=== PATIENT | female | born 2000 | race Caucasian/White ===

== ENCOUNTER 2019-08-25 20:13 | Emergency (ER) | payer BC ==
--- OUTSIDE RECORDS SUMMARY | 2019-08-25 20:28 | XMS REPORT | Continuity of Care Document ---
:2000 Author Organization 0001 - [facility] Address [address] [place] [address] Phone Care Team Providers Name Role Phone PARTHA STEVEN MD Unavailable Unavailable Allergies, Adverse Reactions, Alerts Substance Reaction Status azithromycin Rash Active Medications Medication Instructions Dosage Effective Dates Status Comments (start - stop) hydroxyzine HCl 25 Take one to two - Active mg tablet tablets up to two times a day as needed for severe anxiety. Protonix 20 mg take 1 tablet by 20 MG - Active Please call tablet,delayed oral route every Marlena when release day ready. Thankyou. Stool Softener 100 take 1 capsule by 100 MG - Active over the mg capsule oral route every counter day at bedtime as needed melatonin 5 mg 1 tablet at night - Active OVER the tablet counter multivitamin tablet take 1 tablet by - Active Over the oral route every counter, day with food Vitamin D 800-1000 mcg REAGAN (28) 3 mg-0.02 take 1 tablet by 1.00 tablet - Active mg tablet oral route every day Problems Condition Effective Dates (start - stop) Clinical Status Encntr for general adult medical exam w/o abnormal findings Anxiety Dissociative episodes Generalized abdominal pain Family history of thyroid disease Sprain of unspecified ligament of left - ankle, init encntr Oth slipping, tripping and stumbling - w/o falling, init Unspecified place or not applicable - Activity, running - Unspecified external cause status - Insect bite, initial encounter Insect bite (nonvenomous), left lower - leg, initial encounter Insect bite (nonvenomous), right lower - leg, init encntr Encounter for screening for - respiratory tuberculosis Encntr for general adult medical exam w/o abnormal findings Encounter for screening for other - disorder BMI pediatric, 5th percentile to less - than 85% for age Procedure and treatment not carried - out, unspecified reason Other depression Acne vulgaris Encntr for routine child health exam w/o abnormal findings Encounter for screening for other - disorder BMI pediatric, 5th percentile to less - than 85% for age Encounter for immunization - Acne vulgaris Encntr for routine child health exam w/o abnormal findings Encounter for immunization - BMI pediatric, 5th percentile to less - than 85% for age Encounter for immunization - Pharyngitis, acute Check, routine, /child Screening for viral disease NEC - Fever presenting with conditions classified elsewh Influenza due to identified A. influenza virus Urinary frequency Acute UTI VACCN/INOC VIRAL DIS NEC - Tendinitis, achilles - Fever Viral Infection, Unspecified Viral Infection, Unspecified - Check, routine, infant/child - Sprain/strain, ankle NOS Sprain/strain, ankle NOS - Influenza Vaccine - Check, routine, infant/child - Influenza Vaccine - Otitis media NOS Otitis media NOS Otitis media NOS Otitis media NOS - Otitis media NOS - Upper Respiratory Infection, Acute Check, routine, /child - Infection, viral NOS Acute Conjunctivitis, acute NOS Acute Pharyngitis, acute Acute Stridor Acute Fever Acute Infection, viral NOS Acute Pharyngitis, acute Acute Infection, viral NOS Acute Infection, viral NOS Acute Check, routine, infant/child Routine Check, routine, /child Routine Check, routine, /child Routine Check, routine, /child Routine Procedures Procedure Date Procedure Unknown Results Test Name Date and Time Measure Units Reference Range Abnormal Flag Status Comments Unknown Encounters Encounter Practice Location Reason(s) Diagnoses Date Provider Providers Description For Visit Copied on Encounter 4416 [facility] Encntr for [facility], Pediatrics general adult 8 PARTHA. 3357 [place] medical exam w/o [address], findings Juancho Romero [place], [place], [place] [address], [place], [address]. tel: tel:[phone] - [facility], Pediatrics PARTHA. [address] [place] [address], Juancho Romero [facility], [place], [place], [place], [facility], [place], [address]. tel: tel:[phone] - [facility] AnxietyDissociat [facility], Pediatrics wolfgang 6 PARTHA. 3357 [place] episodesGenerali Bryan zed abdominal [address], painFamily Heather Juancho history of [place], thyroid disease [place] [address], [place], [address]. tel: tel:[phone] - [facility] Sprain of [facility] Sonic[facility], Center unspecified 0 LONG. Provider: Jeramie ligament of left 4416 [place] LONG Adams ankle, init [facility], [place], operated by [facility], Street, encntrOth East, 4417 [place] slipping, [place], [place], [place], tripping and [address] stumbling w/o tel:+ East, tel:+60 falling, [phone] [place], [phone] [place], [address] or not tel:+60 applicableActivi [id number] ty, runningUnspecifi ed external cause status 0001 - [facility] Insect bite, VALERIA [employer], Center initial 2-201 ELICIA. 4417 [place] encounterInsect [address] [place] Bryan bite [address], (nonvenomous), Juancho Roberts left lower leg, [place], [place], [place], initial [address]. [address], [place] encounterInsect tel: tel:+ [phone] (nonvenomous), right lower leg, init encntr 0001 - [facility] Encounter for Apr-0 DEGUARDI [employer], Pediatrics screening for 4201 JACQUES. [place] respiratory 8 Caesar Adams tuberculosis Eliu Romero, [facility] [place], [place], [place], [address]. [address], [place] tel: tel: [phone] 0001 - S Dec-2 GUIZANO [employer], Pediatrics 8-201 PARTHA. [place] Bryan Nowak, Juancho Romero [facility], [place], [place], [place], [facility], [place], [address]. tel: tel: [phone] - S Encntr for Dec-2 GUIZANO [employer], Pediatrics general adult 1-201 PARTHA. [place] medical exam w/o Bryan abnormal [facility], findingsEncounte Ju[place]o Romero r for screening [place], for other [place] [address], [place], [address]. tel: pediatric, 5th tel:[phone] percentile to [phone] less than 85% for age 0001 - S Procedure and Apr-1 GUIZANO [employer], Pediatrics treatment not 0-201 PARTHA. Marie carried out, Bryan unspecified Caesar Eliu, reason Juancho Romero [facility], [place], [place], [address], [place], [address]. tel: tel:[phone] - [facility] Other depression Apr-1 GUIZANO [employer], Pediatrics 0-201 PARTHA. 3357 [place] 7 Bryan [facility], Juancho Romero [place], [place], [address], [facility], [address]. tel:60 tel:[phone] - [facility] Acne vulgaris Dec-2 [facility], Dermatology 1-201 LESA. 200 33-57 6 [facility], [address], [place], [place], [place], [address]. [address], [place] tel:+6076 tel:+ [phone] 0001 - [facility] Encntr for Dec-0 [employer], Pediatrics routine child 5-201 PARTHA. 33-57 [place] health exam w/o Bryan abnormal Caesar [place], Juancho Diaz for screening [place], for other [place], [address], [place], [address]. tel: pediatric, 5th tel:[phone] percentile to 264491 less than 85% for age 0001 - [facility] Encounter for Nov-0 DEGUARDI [employer], Pediatrics immunization 9-201 JACQUES. -57 [place] 6 [facility], [place], [place], [address]. [address], [place] tel:+[phone] tel:[phone] 0001 - [facility] Acne vulgaris Sep-2 [employer], Dermatology 6-201 LESA. 200 33-57 6 [facility], [address], [place], [place], [place], [address]. [address], [place] tel:+[phone] tel: [phone] 0001 - [facility] Encntr for Nov-1 GUIZANO [employer], Pediatrics routine child 9-201 PARTHA. 33-57 [place] health exam w/o 5 - Bryan Maynard [place] r for [place], immunizationBMI [place], [address], [place] pediatric, [place], [address]. tel:+60 percentile to tel:[phone] less than 85% [id number] for age [facility] Encounter for A Fourth Act [facility], Pediatrics immunization 6-201 PARTHA. 33-57 [place] 5 [facility], Juancho Romero [facility], [place], [place], [address], [place], [address]. tel:+60 tel:[phone] - [facility] Pharyngitis, MANISH HANNA. [employer], Center acute 0- 4417 Jeramie 33-[address] [facility], [place], [place], [place] [address]. [place], [place], tel:[phone], [place] 797[address] tel:[phone] [place] [address] Check, routine, [facility], Pediatrics /childScre 0-201 PARTHA. 33-57 [place] ening for viral Bryan disease [facility], Juancho Romero [facility], [place], [place], [address], [place], [address]. tel:+60 tel:[phone] - [facility] Fever presenting [facility], Pediatrics with conditions 2-201 PARTHA. 3357 [place] classified Bryan elsewhInfluenza [facility], due to Juancho Romero identified A. [facility], [place], [place], influenza virus [place], [address], [place], [address]. tel:60 tel:[phone] - [facility] Walk-In Urinary Apr- AWAN JOSH. ICONIC, Center frequencyAcute 0-201 4433 [place] 33-[address] [facility], Rheumatolog Juancho , [place], [place], [place], [address]. [address], [place] tel:+[phone] tel:[phone] 0001 - [facility] Oct-2 SAIDA S Inc, Pediatrics 7-201 ASWINI. 33-57 [place] 4 [facility], [place], [place], [place], [address], [place], [address]. tel: tel:+ [phone] - S Apr-0 BPEDS S Inc, Pediatrics 9-201 NURSE. . [place] 4 [facility], [place], [address], [place] tel:[phone] - [facility] Dec-0 [employer] S Inc, Pediatrics 4-201 NURSE. . [place] 3 [place], [address], [place] tel:+ [phone] 0001 - [facility] VACCN/INOC VIRAL Oct-0 [facility] Inc, Pediatrics DIS NECCheck, 7-201 PARTHA. 33 [place] routine, 3 [place] /child [facility], [facility], [place], [place], [address], [place], [address]. tel: tel: [phone] - [facility] Walk-In Tendinitis, Sep- JERAMIE Referring S Inc, Center achilles 4201 WALKIN. Provider: 33-57 Jeramie 3 4401 Jer[place] WALKIN Bryan Pkisela E, JERAMIE, Street, [place], [place], 4401 [place] [address]. [place], [place], [address]kw[address], [address], [place], tel:+ [place], [phone]. [phone] - [facility] FeverViral Mar- GUIZANO Referring [employer] Inc, Pediatrics Infection, 8201 PARTHA. Provider: 33-57 Marie UnspecifiedViral 3 PARTHA Bryan Infection, Caesar STEVEN , Street, Unspecified Ave, [facility], [place], [place], [place] [address], [place], [address]. SPED, tel: tel:[phone] [place] [phone] [address]356 , [place], [address]. tel:[phone] [place] [address] Check, routine, Mar-0 [facility], Pediatrics /childChec 4-201 PARTHA. 33 [place] k, routine, 2 Bryan /child Caesar [place], e, [facility], [place], [place], [address], [facility], [address]. tel: tel:+ [phone] - [facility] Sprain/strain, Sep- [facility] Referring S Inc, Pediatrics ankle 3-201 PARTHA. Provider: 33-57 [place] NOSSprain/strain 2 PARTHA Bryan , ankle NOS [facility], [place], Av, [facility], [place], [place], [place] [address], [place], [address]. SP, tel:+ tel: [place] [phone] [address] , [place], [address]. tel:[phone] [place] [address] Influenza Sep- PICHETTE [facility] Inc, Pediatrics VaccineCheck, 9-201 SANTO. [place] routine, 1 [place] 9 [place] /childChec [facility], routine, [facility] [place] /[place], [address]. [place], [place], uenza Vaccine tel: [phone], [place] 374772 tel: [phone] [address] [place] [address] Walk-In Otitis media Refugio- CONSOLAZIO Referring [facility], Center NOSOtitis media 8-201 KAYLA. Provider: 33-57 Jer[place]ie NOSOtitis media 1 4417 [place] WALKIN [place] NOSOtitis media [facility], [place], NOSOtitis media East, [address] [place] NOS [place], [place], [place], [address]. [address]kw[address] , [address], [place] tel:+60 [place], tel:[phone] [place], [address]. [phone] [facility] Upper Dec- GUIZANO Referring S Inc, Pediatrics Respiratory 6-201 PARTHA. Provider: 33- [place] Infection, Acute 0 PARTHA Bryan Watters, Eliu, Ave, [facility], [place], [place], [facility] [address], [place], [address]. [facility]SPED, tel:+60 tel:[phone] [place] [phone] 834003 , [place], [address]. tel:[phone] 0001 - [facility] Mar-2 BP[employer] S Inc, Pediatrics 9-201 NURSE. . [place] 0 [facility], [place], [address], [place] tel:[phone] [phone] - [facility] Check, routine, [facility] Inc, Pediatrics /child 2-201 KATHRINE. 257 [place] 0 [facility] & [place], [place], [place], [place], [address], [place], [address]. tel:+60 tel:[phone] - S Mar- PENDELL S Inc, Pediatrics 6-200 POLLY. JENNIFER - [place] 9 262 Elisa Bryan Ale, [place], [facility], [address]. [place], [place], tel:+[phone] [address], [place] 190505 tel:[phone] - [facility] Infection, viral Refugio- MELISSA [facility] Inc, Pediatrics NOS 4-200 ROMI. Provider: [place] 9 ROMI TORRES, Eliu, Ave, [facility], [place], [place], [place], [place] [address], [place], [address]. UHSPED, tel:+60 tel:+[phone] [place] [phone] 827271 , [place], [address]. tel:[phone] 0001 - S Jun- [facility] Inc, Pediatrics 9-200 PARTHA. [place] 9 Bryan Caesar [place], e, [facility], [place], [place], [address], [facility], [address]. tel: tel:[phone] - S Conjunctivitis, Nov-1 S Inc, Pediatrics acute [place] NOSPharyngitis, 8 [facility], [place], [address], [place] tel:[phone] 0001 - S Nov-0 PENDELL S Inc, Pediatrics 3-200 POLLY. [facility] - [place] 8 262 [facility], [facility], [address]. [place], [place], tel:[phone], [place] 456273 tel:60 [phone] 0001 - S Larry-0 GUIZANO S Inc, Pediatrics 8-200 PARTHA. [place] 8 [place], [place], [place] [address], [facility], [address]. tel: tel:[phone] - S Fever Apr-1 PENDELL [facility] [employer], Pediatrics 4-200 POLLY. [facility] Provider: [place] 8 262 [facility], [facility], [address], [address]. [place], [place], tel:+[phone] [place] [address], [address] [place] tel: [place], [place], [id number]. tel:[phone] 0001 - S Nov-2 GUIZANO [employer], Pediatrics 9-200 PARTHA. [place] 7 42 [place], [place], [place] [address], [facility], [address]. tel:60 tel:[phone] - S Infection, viral Apr-1 S Inc, Pediatrics NOS [place] 7 [place], [address], [place] tel:+ [phone] [address] [place] [address] Pharyngitis, GUIZANO [facility] [employer] Inc, Pediatrics acuteInfection, 3-200 PARTHA. Provider: 33-57 [place] viral 7 PARTHA Bryan NOSInfection, Caesar [facility], Street, viral NOS Ave, [facility], [place], [place], [facility] [address], [place], [address]. [facility], tel: tel:+[phone] [place] [phone] [address] , [place], [address]. tel:[phone] [place] [address] Nov-0 iWarda [employer] Inc, Pediatrics 6-200 PARTHA. 3357 [place] 6 Bryan Caesar [place], Ave, [place], [place], [place], [address], [place], [address]. tel: tel:[phone] - [facility] Check, routine, Nov- A [employer] Inc, Pediatrics /child 2-200 PARTHA. 33-57 [place] 6 [facility], e, [place], [place], [place], [address], [place], [address]. tel: tel:[phone] Family History Family Member Diagnosis Age At Onset Paternal grandfather Hypertension Immunizations Vaccine Date Status Comments Influenza, injectable, not administered Note: States received at quadrivalent, preservative [facility] pharmacy in free, split virus 04/2018. ; Source: New Immunization Record Influenza, injectable, administered Source: Other Registry quadrivalent, preservative free, split virus 9530-0713 Influenza, injectable, administered Source: New Immunization quadrivalent, preservative Record free, split virus 3 years or older 8745-6797 Meningococcal MCV4O administered Source: New Immunization Record Influenza virus vaccine, administered Source: New Immunization injectable, quadrivalent, Record split virus, preservative free, 3 years or older Fluarix Quad 4128-2765 Fluarix Quadrivalent Syringe administered Source: Source Unspecified HPV (quadrivalent) administered Source: Source Unspecified HPV (quadrivalent) administered Source: New Immunization Record HPV (quadrivalent) administered Source: New Immunization Record Fluarix Quadrivalent Syringe administered Source: New Immunization Record Fluarix Syringe administered Source: New Immunization Record Fluarix Syringe administered Source: New Immunization Record Fluzone PF (VFC) 36months and administered Source: New Immunization older Record Tdap administered Source: New Immunization Record MCV4 (11-55 yrs) administered Source: New Immunization Record flu (36mo - 18yr) injection - administered Source: New Immunization single dose (Fluzone) Record Hep A (2 dose) 0.5 mL IM administered Source: New Immunization Record varicella administered Source: New Immunization Record flu (split) (3 yrs or older) administered Note: parent denies egg 0.5 mL IM with preservatives allergy ; Source: New Immunization Record Hep A (ped/adol, 2 dose) administered Source: New Immunization Record flu (split) (3 yrs or older) administered Source: New Immunization 0.5 mL IM with preservatives Record flu (split) (3 yrs or older) administered Note: Abstracted -05/05/2006 ; Source: New Immunization Record MMR administered Note: Abstracted -05/01/2006 ; Source: New Immunization Record polio, inactivated (IPV) administered Note: Abstracted -05/01/2006 ; Source: New Immunization Record DTaP administered Note: Abstracted -05/01/2006 ; Source: New Immunization Record pneumo (under 5) (PCV) administered Note: Abstracted -05/01/2006 ; Source: New Immunization Record polio, inactivated (IPV) administered Note: Abstracted -05/01/2006 ; Source: New Immunization Record HIB administered Note: Abstracted -05/01/2006 ; Source: New Immunization Record DTaP administered Note: Abstracted -05/01/2006 ; Source: New Immunization Record varicella administered Note: Abstracted -05/01/2006 ; Source: New Immunization Record MMR administered Note: Abstracted -05/01/2006 ; Source: New Immunization Record hep B (ped/adol, 3 dose) administered Note: Abstracted -05/01/2006 ; Source: New Immunization Record HIB administered Note: Abstracted -05/01/2006 ; Source: New Immunization Record DTaP administered Note: Abstracted -05/01/2006 ; Source: New Immunization Record polio, inactivated (IPV) administered Note: Abstracted -05/01/2006 ; Source: New Immunization Record HIB administered Note: Abstracted -05/01/2006 ; Source: New Immunization Record DTaP administered Note: Abstracted -05/01/2006 ; Source: New Immunization Record polio, inactivated (IPV) administered Note: Abstracted -05/01/2006 ; Source: New Immunization Record HIB administered Note: Abstracted -05/01/2006 ; Source: New Immunization Record DTaP administered Note: Abstracted -05/01/2006 ; Source: New Immunization Record hep B (ped/adol, 3 dose) administered Note: Abstracted -05/01/2006 ; Source: New Immunization Record hep B (ped/adol, 3 dose) administered Note: Abstracted -05/01/2006 ; Source: New Immunization Record Influenza, injectable, pending Source: New Immunization quadrivalent, preservative Record free, split virus Payers Payer name Insurance type Covered libertarian ID Authorization(s) [employer] He [id number] [facility] [id number] [facility] [id number] [facility] [id number] [facility] [id number] [facility] [id number] [facility] [id number] Social History Type Description Quantity Date Captured Comments Alcohol Use Details Unknown Caffeine Use Details Unknown Tobacco Use Status Unknown Smoking Status Unknown Vital Signs Date / Height Weight BMI Pulse Blood Temperature Respiratory Body Head BMI Time: Rate Pressure Rate Surface Circumference percentile Area Unknown Chief Complaint And Reason For Visit No information Reason For Referral Reason For Referral Unknown Plan Of Care Date Type Action Status Unknown Immunization Influenza, injectable, quadrivalent, preservative free, ordered split virus Date Type Problem Goal Intervention Status Start Date Goal Annual Wellness Schedule Annual Visit needed Wellness Visit History Of Present Illness Encounter Date Complaint History Of Present Illness No information Functional Status Encounter Date Functional Assessment Cognitive Assessment Unknown Medications Administered Medication Instructions Dosage Effective Dates (start - stop) Status Comments Drug Treatment Unknown Instructions Date Instruction Additional Information Encourage healthy dietary choices, Related to Encntr for general adult daily physical activities >45 medical exam w/o abnormal findings mintues/day, adequate hydration and sleep. Dental visits every 6 months. Received flu vaccine in college. REquest date to be sent in to add to vaccine record. Age appropriate anticipatory guidance discussed (15-21 years) Age appropriate diet discussed (15-21 years) Age appropriate safety discussed (15-21 years) Oral Health Discussed (15-21 years) Discussed at length. Behavioral Related to Dissociative episodes therapy and meds discussed. multiple insect bites to legs, will Related to Insect bite, initial prescribe prednisone Thank you for encounter choosing the [facility] Walk In. We hope that you will be feeling better soon.Any condition can change and some diseases may worsen despite proper treatment. Other problems may begin with vague or unusual symptoms and only over time will the problem become more clear, making it possible to arrive at the correct diagnosis. Your visit today is not a substitute for, or an effort to provide complete medical care. In most cases, you should let your primary care doctor check you again. Tell your doctor about any new or lasting problems. If you do not have a primary care provider, you have been given a list today of local providers who are accepting new patients. All x-rays are interpreted by a radiologist, usually within 48 hours. If there is any important difference between the radiologist's interpretation and what you were told today by the provider, you will be notified. If you had cultures done today, results will be available in 72 hours, depending on specimen. Encourage healthy dietary choices, Related to Encntr for general adult daily physical activities, adequate medical exam w/o abnormal findings hydration and sleep. Received flu vaccine at pharmacy for this winter season. Bloodwork to be done. Refer to Related to Other depression Psychiatry, appt to be made. Depression, anxiety, bipolar disorder.Consider Dr. Holley Hernandez, [facility] Psych. Encourage healthy diet, daily physical activities, adequate hydration and sleep. Wash face in the morning with benzoyl Related to Acne vulgaris peroxide wash. If your skin is dry, use a lower dose like 2.5% or 5%.Wash face in the evening with Cetaphil or Cerave.After washing your face, apply tretinoin 0.05% cream to the face every night.Recheck in 1 year. Please call sooner if needed. Encourage healthy diet, continue daily Related to Encntr for routine child physical activites, growth chart health exam w/o abnormal findings reviewed. Vaccines up to date. Wash face in the morning with benzoyl Related to Acne vulgaris peroxide wash. If your skin is dry, use a lower dose like 2.5% or 5%.Wash face in the evening with Cetaphil or Cerave.After washing your face, apply treitnoin 0.05% cream to the face. You can start using every other night or every third night and increase slowly as tolerated.Recheck in 3 months. Please call sooner if needed. ACNE: Avoid scrubbing - remove oil, dirt, and makeup without irritating the skin. Apply topical medications to clean skin a few minutes after washing. Moisturizers, sunscreens, or makeup may be applied after medications to correct excessive dryness, prevent sunburn, and conceal redness. If you have large open blackheads or white pustules you can push them out gently with a comedone extractor (sold at pharmacies), but otherwise do not pinch or pink pimples. Eat a balanced diet and avoid high glycemic carbs, hydrogenated and saturated fats, and milk intake over 1glass per day (incl.skim). Yogurt and cottage cheese - OK. Get plenty of sleep and exercise - what is good for your health overall is also good for your skin. It usually takes 2-3 months of steady treatment to get over 50% improvement, and continued regular use to have the best results. Acne cannot be cured, but can be controlled in most cases. ACNE, RETINOIDS: Tretinoin. Wash the face and apply to a dry skin surface. Use about a split- pea-sized drop for each cheek, the forehead, and chin. Rub in well. Avoid getting close to the eyes and lips. Tretinoin must be used at bedtime and cannot be applied at the same time as benzoyl peroxide. Retinoids cause exfoliation, so drying, flaking, and easier sunburning are expected. Light moisturizers such as CeraVe Lotion, Cetaphil, or Aveeno can be used. Use of a 30 or greater SPF sunscreen is recommended prior to sun exposure. Neutrogena Ultra-Sheer 55 and Aveeno 55 are good facial sunscreens. Acne improvement and control takes 2-3 months to begin take effect, and control of acne requires continued daily use. Risks and benefits of new medication discussed. Patient verbalized understanding Encourage healthy diet, daily physical Related to Encntr for routine child activities. Flu vaccine received health exam w/o abnormal findings earlier. Menactra booster given. The office will call with results of Related to Pharyngitis, acute culture.May use warm salt water gargles, tea with honey, and over the counter throat lozenges and throat sprays for relief of sore throat. - Thank you for choosing the [facility]. We hope that you will be feeling better soon.Any condition can change and some diseases may worsen despite proper treatment. Other problems may begin with vague or unusual symptoms and only over time will the problem become more clear, making it possible to arrive at the correct diagnosis. Your visit today is not a substitute for, or an effort to provide complete medical care. In most cases, you should let your primary care doctor check you again. Tell your doctor about any new or lasting problems. If you do not have a primary care provider, you have been given a list today of local providers who are accepting new patients. All x-rays are interpreted by a radiologist, usually within 48 hours. If there is any important difference between the radiologist's interpretation and what you were told today by the provider, you will be notified. If you had cultures done today, the results will be available in 72 hours, depending on the specimen.- Growth chart printed, reviewed, copy Related to Check, routine, given. Vaccines up to date. /child Discussed positive result with dad. Related to Influenza due to Supportive measures, fever control, identified A. influenza virus rest, good hydration. Will send your urine for culture, call Related to Acute UTI the office in 2-3 days for results.Drink plenty of water. Do not delay urinating when you feel the need to urinate. Wipe from front to back to keep rectal bacteria from getting into the vagina and urethra. Avoid using irritating cosmetics or chemicals in the area of the vagina and urethra (such as strong soaps, or sprays). Keep your genital area clean. Empty your bladder completely when you urinate. Wear all-cotton or cotton-crotch underwear. Change underwear every day. If new or worsening symptoms such as high fever or vomiting occur then go to the ER for evaluation, otherwise followup with your primary doctor within 5 days for recheck. Thank you for choosing the [facility]. We hope that you will be feeling better soon.Any condition can change and some diseases may worsen despite proper treatment. Other problems may begin with vague or unusual symptoms and only over time will the problem become more clear, making it possible to arrive at the correct diagnosis. Your visit today is not a substitute for, or an effort to provide complete medical care. In most cases, you should let your primary care doctor check you again. Tell your doctor about any new or lasting problems. If you do not have a primary care provider, you have been given a list today of local providers who are accepting new patients. All x-rays are interpreted by a radiologist, usually within 48 hours. If there is any important difference between the radiologist's interpretation and what you were told today by the provider, you will be notified. If you had cultures done today, the results will be available in 72 hours, depending on the specimen.
--- NOTE | 2019-08-25 21:05 | ED ---
HPI Chest Pain - HPI Summary HPI Summary: This patient is a 19 year old F presenting to ED with a chief complaint of mid- sternal chest pain since 1.5 days ago. Patient has an eating disorder and she was sent here by her diesel powerplant mechanic as her weight has been low recently. Patient reports her chest pain started 1.5 days ago and she describes it as a tightness. Patient was just relaxing when the pain started. She is not allowed to exercise. Patient reports that since the pain started, the pain has been constant. Patient also reports mild shortness of breath. Patient denies fever, coughing, nausea, diaphoresis, pain or swelling in the legs. Patients grandfather had an AK when he was 52. The patient rates the pain 6/10 in severity. Symptoms aggravated by nothing. Symptoms alleviated by nothing. Patient takes Zoloft daily and she is taking prophylactic Tamiflu. Medications reviewed. Allergies noted. - History of Current Complaint Chief Complaint: EDChestPainROMI Time Seen by Provider: 08/25/19 20:57 Hx Obtained From: Patient Onset/Duration: Started Days Ago - 1.5 days ago, Still Present Timing: Constant, Lasting Days - Since 1.5 days ago Initial Severity: Moderate Current Severity: Moderate Pain Intensity: 6 Pain Scale Used: 0-10 Numeric Chest Pain Location: Mid Sternal Character: Tightness Aggravating Factor(s): Nothing Alleviating Factor(s): Nothing Associated Signs and Symptoms: Positive: Chest Pain, Shortness of Breath. Negative: Fever, Diaphoresis, Nausea, Cough, Calf Pain/Swelling PMH/Surg Hx/FS Hx/Imm Hx Endocrine/Hematology History: Denies: Hx Diabetes Cardiovascular History: Denies: Hx Hypercholesterolemia, Hx Hypertension Psychiatric History: Reports: Hx Eating Disorder - Surgical History Surgery Procedure, Year, and Place: Denies Infectious Disease History: No Infectious Disease History: Denies: Traveled Outside the [place] in Last 30 Days - Family History Known Family History: Positive: Cardiac Disease - AK in grandfather when he was 52 - Social History Alcohol Use: Rare Hx Substance Use: No Substance Use Type: Reports: None Hx Tobacco Use: No Smoking Status (MU): Never Smoked Tobacco Review of Systems Negative: Fever, Skin Diaphoresis Positive: Chest Pain Positive: Shortness Of Breath. Negative: Cough Negative: Nausea Musculoskeletal: Negative - Pain or swelling in legs All Other Systems Reviewed And Are Negative: Yes Physical Exam - Summary Physical Exam Summary: Constitutional: Well-developed, Well-nourished, Alert. (-) Distressed Skin: Warm, Dry HENT: Normocephalic; Atraumatic Eyes: Conjunctiva normal Neck: Musculoskeletal ROM normal neck. (-) JVD, (-) Stridor, (-) Tracheal deviation Cardio: Rhythm regular, rate normal, Heart sounds normal; Intact distal pulses; Radial pulses are 2+ and symmetric. (-) Murmur Pulmonary/Chest wall: Effort normal. (-) Respiratory distress, (-) Wheezes, (-) Rales Abd: Soft, (-) tenderness, (-) Distension, (-) Guarding, (-) Rebound Musculoskeletal: (-) Edema Lymph: (-) Cervical adenopathy Neuro: Alert, Oriented x3 Psych: Mood and affect Normal Triage Information Reviewed: Yes Vital Signs On Initial Exam: Initial Vitals Temp Pulse Resp BP Pulse Ox 98.2 F 83 16 125/74 97 08/25/19 20:19 08/25/19 20:19 08/25/19 20:19 08/25/19 20:19 08/25/19 20:19 Vital Signs Reviewed: Yes Procedures - Sedation Patient Received Moderate/Deep Sedation with Procedure: No Diagnostics - Vital Signs Vital Signs Temp Pulse Resp BP Pulse Ox 08/25/19 20:19 98.2 F 83 16 125/74 97 - Laboratory Lab Statement: Any lab studies that have been ordered have been reviewed, and results considered in the medical decision making process. - Radiology CXR Radiology Interpretation Completed By: ED Physician Summary of Radiographic Findings: No acute processes, pending official radiology report. - EKG 2014 Cardiac Rate: NL - 80 BPM EKG Rhythm: Sinus Rhythm Summary of EKG Findings: NSR at 80 BPM, RSR in V1 and V2, no ischemic changes. Dr. Francis has reviewed this radiology report. Chest Pain Course/Dx - Course Course Of Treatment: Patient is here with 1.5 days of constant chest pain. Patient has no PE risk factors and is perc negative. Patient has no real risk factors for ACS outside of a grandfather who had an AK. Patient had an EKG which showed no evidence of ischemia. Patient had a chest x-ray which showed no abnormality. Given patient's age, well appearing exam, lack of risk factors , patient does not need further workup at this time. - Diagnoses Provider Diagnoses: Chest pain Discharge ED - Sign-Out/Discharge Documenting (check all that apply): Patient Departure - Discharge - Discharge Plan Condition: Stable Disposition: HOME Patient Education Materials: Chest Pain (ED) Referrals: [facility] [Outside] Additional Instructions: Come back if you have trouble breathing, high fever, severe chest pain, or any other concerning symptoms. - Billing Disposition and Condition Condition: STABLE Disposition: Home - Attestation Statements Document Initiated by Scribe: Yes Documenting Scribe: Marshall Leon Provider For Whom Krysten is Documenting (Include Credential): Mark Francis MD Scribe Attestation: IMarshall, scribed for Mark Francis MD on 08/25/19 at 2113. Scribe Documentation Reviewed: Yes Provider Attestation: The documentation as recorded by the Marshall jo accurately reflects the service I personally performed and the decisions made by me, Mark Francis MD Status of Scribe Document: Viewed
[2019-08-25 22:46] VITALS: BP 110/73
== END 2019-08-25 21:45 | disposition home or self-care (01) ==
LOC: ED 20:13
DX: R07.9 Chest pain, unspecified (principal); Z79.899 Other long term (current) drug therapy
CPT/HCPCS: 71046; 93005; 99283